=== PATIENT | female | born 1990 | race Caucasian/White ===

== ENCOUNTER 2017-02-25 11:41 | Emergency (ER) | payer OTHER ==
[~2017-02-25] VITALS: Ht 165.1 cm; Wt 93.0 kg
[~2017-02-25 11:41] MED LIST: AMOXIL500 MG PO; CATAFLAM50 MG PO; ELIMITE 5%60 GM PO; FLEXERIL10 MG PO; KEFLEX500 MG PO; LIDEX 0.05% CRE15 GM T; MACROBID100 M1 PO; MOTRIN800 MG PO; NKHM; NORCO 325 MG-51 TAB PO; PEN-VEE K500 MG PO; PRENATAL1 TA1 PO; PRILOSEC20 MG PO; ROMYCIN5 MG/GM OP; TRAMADOL HCL50 MG PO
[2017-02-25] MEDS ORDERED: NAPROSYN500 MG PO (11:58)
[2017-02-25] MEDS ORDERED: CLINDAMYCIN HC300 MG PO (11:58)
== END 2017-02-25 12:08 | disposition home or self-care (01) ==
LOC: ED 11:41
DX: K02.9 Dental caries, unspecified (principal); K04.7 Periapical abscess without sinus

== ENCOUNTER 2017-02-28 09:41 | Emergency (ER) | payer OTHER ==
[~2017-02-28] VITALS: Ht 165.1 cm; Wt 954.8 kg
[~2017-02-28 09:41] MED LIST changes: +CLINDAMYCIN HC300 MG PO; +NAPROSYN500 MG PO
== END 2017-02-28 10:37 | disposition home or self-care (01) ==
LOC: ED 09:41
DX: S05.02XA Injury of conjunctiva and corneal abrasion without foreign body, left eye, initial encounter (principal); X58.XXXA Exposure to other specified factors, initial encounter; Y93.89 Activity, other specified; Y92.89 Other specified places as the place of occurrence of the external cause; Y99.8 Other external cause status

== ENCOUNTER 2017-04-15 06:32 | Emergency (ER) | payer OTHER ==
[~2017-04-15] VITALS: Ht 167.6 cm; Wt 81.6 kg
[2017-04-15] MEDS ORDERED: NAPROSYN500 MG PO (07:22)
[2017-04-15] MEDS ORDERED: PENICILLIN-VK500 MG PO (07:22)
== END 2017-04-15 07:25 | disposition home or self-care (01) ==
LOC: ED 06:32
DX: K04.7 Periapical abscess without sinus (principal)

== ENCOUNTER 2017-07-29 18:00 | Emergency (ER) | payer OTHER ==
[~2017-07-29] VITALS: Ht 167.6 cm; Wt 90.7 kg
[~2017-07-29 18:00] MED LIST changes: +PENICILLIN-VK500 MG PO
[2017-07-29] MEDS ORDERED: AUGMENTIN 875875 MG PO (18:09)
[2017-07-29] MEDS ORDERED: SEPTDS PO (18:09)
== END 2017-07-29 18:18 | disposition home or self-care (01) ==
LOC: ED 18:00
DX: L03.211 Cellulitis of face (principal); K04.7 Periapical abscess without sinus

== ENCOUNTER 2018-03-06 06:28 | Emergency (ER) | payer SELFPAY ==
[~2018-03-06] VITALS: Ht 167.6 cm; Wt 86.2 kg
[~2018-03-06 06:28] MED LIST changes: +AUGMENTIN 875875 MG PO; +SEPTDS PO
[2018-03-06 07:19] LABS: BASO % 0.4 % (0.0-1.0); EOS # 0.2 10*3/uL (0.0-0.4); EOS % 1.8 % (1.0-4.0); HEMATOCRIT 39.3 % (37.0-47.0); HEMOGLOBIN 13.3 g/dl (12.0-16.0); LYMPH # 1.5 10*3/uL (1.3-4.4); LYMPH % 14.5 % (27.0-41.0); MEAN CELL VOLUME 91.2 fl (81.0-99.0); MEAN CORPUSCULAR HGB 30.9 pg (27.0-31.0); MEAN CORPUSCULAR HGB CONC 33.8 g/dl (33.0-37.0); MEAN PLATELET VOLUME 11.6 fl (9.6-12.3); MONO # 0.8 10*3/uL (0.1-1.0); MONO % 7.3 % (3.0-9.0); NEUT # 7.8 10*3/uL (2.3-7.9); NEUT % 75.7 % (47.0-73.0); PLATELET COUNT AUTOMATED 216 10*3/uL (130-400); RED BLOOD COUNT 4.31 10*6/uL (4.10-5.10); RED CELL DISTRI WIDTH 12.5 % (0-14.5); WHITE BLOOD COUNT 10.3 10*3/uL (4.8-10.8)
[2018-03-06 07:37] LABS: ALBUMIN 3.9 gm/dl (3.1-4.5); ALKALINE PHOSPHATASE 51 U/L (45-117); BUN 5 mg/dl (7-24); CHLORIDE 108 mmol/L (98-107); CREATININE 0.68 mg/dL (0.55-1.02); POTASSIUM 3.3 mmol/L (3.5-5.1); SGOT/AST 10 IU/L (3-35); SGPT/ALT 21 U/L (12-78); SODIUM 142 mmol/L (136-145); TOTAL PROTEIN 8.1 gm/dL (6.4-8.2)
[2018-03-06 07:43] LABS: BETA-HCG, QUANT < 1.0 mIU/mL (1-3)
== END 2018-03-06 13:50 | disposition short-term general hospital (02) ==
LOC: ED 06:28
PROVIDERS: Emergency Medicine; Emergency Medicine Emergency Medical Services
DX: L02.01 Cutaneous abscess of face (principal); K03.81 Cracked tooth

== ENCOUNTER → 2019-09-17 | Outpatient (CLI) | payer OTHER ==
[2019-09-18 06:10] LABS: HEPATITIS B SURFACE AB Non Reactive (.)
[2019-09-18 15:07] LABS: MUMPS ANTIBODIES, IGG 84.5 AU/mL (Immune >10.9); RUBEOLA AB IGG >300.0 AU/mL (Immune >16.4); VARICELLA-ZOSTER IGG 2236 index (Immune >165)
== END | disposition home or self-care (01) ==
LOC: LAB 16:46
PROVIDERS: Family Medicine
DX: Z00.00 Encounter for general adult medical examination without abnormal findings (principal)

== ENCOUNTER → 2020-08-12 | Outpatient (CLI) | payer OTHER ==
[2020-08-12 11:22] LABS: HEMATOCRIT 38.5 % (37.0-47.0); MEAN CELL VOLUME 91.2 fl (81.0-99.0); MEAN CORPUSCULAR HGB 29.9 pg (27.0-31.0); MEAN CORPUSCULAR HGB CONC 32.7 g/dl (33.0-37.0); MEAN PLATELET VOLUME 12.3 fl (9.6-12.3); RED BLOOD COUNT 4.22 10*6/uL (4.10-5.10); RED CELL DISTRI WIDTH 12.7 % (0-14.5); WHITE BLOOD COUNT 5.4 10*3/uL (4.8-10.8)
[2020-08-12 11:57] LABS: ALBUMIN 3.5 gm/dl (3.1-4.5); ALKALINE PHOSPHATASE 39 U/L (45-117); BUN 11 mg/dl (7-24); CHLORIDE 111 mmol/L (98-107); CHOLESTEROL 133 mg/dL (<200); LDL CHOLESTEROL 79 mg/dL (9-159); SGOT/AST 11 IU/L (3-35); SGPT/ALT 18 U/L (12-78); SODIUM 138 mmol/L (136-145); TOTAL PROTEIN 7.6 gm/dL (6.4-8.2); TRIGLYCERIDES 51 mg/dl (<150)
[2020-08-13 05:06] LABS: HEPATITIS B SURFACE AB Non Reactive (.)
[2020-08-13 18:07] LABS: MUMPS ANTIBODIES, IGG 75.8 AU/mL (Immune >10.9); VARICELLA-ZOSTER IGG 1943 index (Immune >165)
== END | disposition home or self-care (01) ==
LOC: LAB 11:05
PROVIDERS: ATTEND Nurse Practitioner Family
DX: Z02.0 Encounter for examination for admission to educational institution (principal); R51.9 Headache, unspecified; R53.83 Other fatigue; Z13.220 Encounter for screening for lipoid disorders

== ENCOUNTER → 2021-12-23 | Outpatient (CLI) | payer OTHER ==
[2021-12-23 12:17] LABS: HEMATOCRIT 41.7 % (37.0-47.0); MEAN CELL VOLUME 88.2 fl (81.0-99.0); MEAN CORPUSCULAR HGB CONC 32.9 g/dl (33.0-37.0); RED BLOOD COUNT 4.73 10*6/uL (4.10-5.10); RED CELL DISTRI WIDTH 12.1 % (0-14.5); WHITE BLOOD COUNT 5.6 10*3/uL (4.8-10.8)
[2021-12-23 12:33] LABS: BUN 8 mg/dl (7-24); CHLORIDE 106 mmol/L (98-107); CHOLESTEROL 158 mg/dL (<200); CREATININE 0.84 mg/dL (0.55-1.02); POTASSIUM 3.6 mmol/L (3.5-5.1); SGOT/AST 18 IU/L (3-35); SGPT/ALT 28 U/L (12-78); SODIUM 139 mmol/L (136-145); TOTAL PROTEIN 8.6 gm/dL (6.4-8.2); TRIGLYCERIDES 63 mg/dl (<150)
[2021-12-23 12:40] LABS: ALKALINE PHOSPHATASE 66 U/L (45-117); FREE T4 1.08 ng/dl (0.76-1.46); LDL CHOLESTEROL 95 mg/dL (9-159)
[2021-12-26 15:06] LABS: TESTOSTERONE FREE, (DIRECT) 2.6 pg/mL (0.0-4.2)
== END | disposition home or self-care (01) ==
LOC: LAB 11:55
PROVIDERS: ATTEND Family Medicine
DX: Z00.00 Encounter for general adult medical examination without abnormal findings (principal); E55.9 Vitamin D deficiency, unspecified; R53.83 Other fatigue; R63.5 Abnormal weight gain; L68.0 Hirsutism

== ENCOUNTER → 2022-06-06 | Outpatient (CLI) | payer OTHER ==
[2022-06-06 15:01] LABS: HEMATOCRIT 41.7 % (37.0-47.0); MEAN CELL VOLUME 90.3 fl (81.0-99.0); MEAN CORPUSCULAR HGB CONC 32.1 g/dl (33.0-37.0); MEAN PLATELET VOLUME 11.3 fl (9.6-12.3); RED BLOOD COUNT 4.62 10*6/uL (4.10-5.10); RED CELL DISTRI WIDTH 12.3 % (0-14.5); WHITE BLOOD COUNT 7.7 10*3/uL (4.8-10.8)
[2022-06-06 15:46] LABS: ALKALINE PHOSPHATASE 52 U/L (46-116); BUN 6 mg/dl (9-23); CHLORIDE 102 mmol/L (98-107); CHOLESTEROL 159 mg/dL (<200); LDL CHOLESTEROL 92 mg/dL (9-159); POTASSIUM 3.7 mmol/L (3.4-5.1); SGPT/ALT 13 U/L (10-49); TOTAL PROTEIN 7.9 gm/dL (6.0-8.0); TRIGLYCERIDES 83 mg/dl (<150)
== END | disposition home or self-care (01) ==
LOC: LAB 14:32
PROVIDERS: ATTEND Family Medicine
DX: Z00.00 Encounter for general adult medical examination without abnormal findings (principal)

== ENCOUNTER → 2023-04-12 | Outpatient (CLI) | payer OTHER ==
[2023-04-12 10:45] LABS: HEMATOCRIT 40.3 % (37.0-47.0); MEAN CELL VOLUME 93.7 fl (81.0-99.0); MEAN CORPUSCULAR HGB 30.5 pg (27.0-31.0); MEAN CORPUSCULAR HGB CONC 32.5 g/dl (33.0-37.0); RED BLOOD COUNT 4.3 10*6/uL (4.10-5.10); RED CELL DISTRI WIDTH 12.4 % (0-14.5); WHITE BLOOD COUNT 7.4 10*3/uL (4.8-10.8)
[2023-04-12 11:30] LABS: ALKALINE PHOSPHATASE 46 U/L (46-116); BUN 10 mg/dl (9-23); CHLORIDE 106 mmol/L (98-107); CHOLESTEROL 158 mg/dL (<200); LDL CHOLESTEROL 98 mg/dL (9-159); POTASSIUM 3.8 mmol/L (3.4-5.1); SGPT/ALT 10 U/L (5-49); TOTAL PROTEIN 7.5 gm/dL (6.0-8.0); TRIGLYCERIDES 44 mg/dl (<150); VITAMIN D, 25-HYDROXY 54.2 ng/mL (30-100)
== END | disposition home or self-care (01) ==
LOC: LAB 10:23
PROVIDERS: ATTEND Family Medicine
DX: Z00.00 Encounter for general adult medical examination without abnormal findings (principal); E55.9 Vitamin D deficiency, unspecified; E66.9 Obesity, unspecified; L68.0 Hirsutism